=== PATIENT | male | born 1960 | race Two or more races ===

== ENCOUNTER 2023-05-07 14:15 | Emergency (ER) | payer OTHER, MEDICAID ==
[~2023-05-07] VITALS: Ht 170.2 cm; Wt 98.0 kg
[2023-05-07 14:35] LABS: Basophils # (auto) 0.1 10 ^3/uL (0-0.2); Basophils % (auto) 0.9 % (0.0-2.0); Eosinophils # (auto) 0.1 10 ^3/uL (0-0.8); Eosinophils % (auto) 1.4 % (0.0-7.0); Hemoglobin 15.3 g/dL (13.5-17.5); Lymphocytes % (auto) 28.6 % (10.0-50.0); Mean Corpuscular Hemoglobin 31.8 pg (28.0-32.0); Mean Corpuscular Hgb Conc. 34.7 g/dL (32.0-36.0); Mean Corpuscular Volume 91.6 fL (80.0-100.0); Monocytes # (auto) 0.6 10 ^3/uL (0-1.3); Monocytes % (auto) 8.2 % (0.0-12.0); Neutrophils # (auto) 4.2 10 ^3/uL (1.6-8.6); Neutrophils % (auto) 60.9 % (37.0-80.0); Nucleated Red Blood Cells % 0.1 %; Red Blood Cells 4.81 10^6/uL (4.5-5.90); Red Cell Distribution Width 12.9 % (11.8-14.3); White Blood Cell 6.9 10^3/uL (4.4-10.8)
[2023-05-07 14:59] LABS: INR 1.04 (0.9-1.15); Partial Thromboplastin Time 28.4 SEC (24.5-34.5); Prothrombin Time 10.9 sec (9.3-11.8)
[2023-05-07 15:08] LABS: Alanine Aminotransferase 18 U/L (7-40); Albumin 4.6 g/dL (3.2-4.8); Alkaline Phosphatase 102 U/L (46-116); Anion Gap 5 (5-15); Aspartate Aminotransferase 16 U/L (13-40); BUN/Creatinine Ratio 9.7 (10.0-20.0); Bilirubin, Total 0.9 mg/dL (0.2-1.0); Blood Urea Nitrogen 11 mg/dL (9-23); Calcium 9.4 mg/dL (8.5-10.1); Carbon Dioxide 30 mmol/L (20-30); Chloride 104 mmol/L (98-107); Glucose 188 mg/dL (74-106); Potassium 3.7 mmol/L (3.5-5.1); Sodium 139 mmol/L (136-145); Total Protein 6.6 g/dL (5.7-8.2)
[2023-05-07 16:35] VITALS: BP 128/79; PULSE 83; RESP 17; TEMP 97.7; O2SAT 96
[2023-05-08] MEDS ORDERED: MORP15TA PO (14:24)
[2023-05-08] MEDS ORDERED: AMIT25TA20 PO (14:24)
[2023-05-08] MEDS ORDERED: NITR0.4S29 SL (14:24)
[2023-05-08] MEDS ORDERED: ISOS60TA24 PO (14:24)
[2023-05-08] MEDS ORDERED: CLOP75TA28 PO (14:24)
[2023-05-08] MEDS ORDERED: TRAM50TA2 PO (14:24)
[2023-05-08] MEDS ORDERED: TRIA75TA55 PO (14:24)
[2023-05-08] MEDS ORDERED: TIZA4CAP PO (14:24)
[2023-05-08] MEDS ORDERED: ASPI-543 PO (14:24)
[2023-05-08] MEDS ORDERED: ATOR40TA52 PO (14:24)
[2023-05-08] MEDS ORDERED: METF-370 PO (14:29)
== END 2023-05-07 16:38 | disposition home or self-care (01) ==
LOC: ER 14:15
DX: R07.89 Other chest pain (principal); R19.7 Diarrhea, unspecified; R05.9 Cough, unspecified; E11.9 Type 2 diabetes mellitus without complications; I25.10 Atherosclerotic heart disease of native coronary artery without angina pectoris; E78.5 Hyperlipidemia, unspecified; Z98.890 Other specified postprocedural states
CPT/HCPCS: 36415; 71045; 80053; 84484; 85025; 85610; 85730; 93005

== ENCOUNTER 2023-05-08 06:39 | Day surgery (SDC) | payer OTHER, MEDICAID ==
[2023-05-08] VITALS (7 sets, daily range): BP systolic 108–127; BP diastolic 64–79; PULSE 69–78; RESP 14–19; TEMP 98.2; O2SAT 95–98
[2023-05-08] MEDS ORDERED: LIDOCAINE 2%HCL (LOCAL ANESTH.) INJ 20ML MDV ONE (12:36)
[2023-05-08] MEDS ORDERED: IODIXANOL 320MG/ML 100ML BTL IV ONE (12:37)
[2023-05-08] MEDS ORDERED: HEPARIN SODIUM (PORCINE) 5000 UNITS/ML 1ML VIAL ONE (12:38)
[2023-05-08] MEDS ORDERED: ANGIOMAX 250 MG VIAL IV ONE (12:38)
[2023-05-08] MEDS ORDERED: VERAPAMIL 2.5MG/ML INJ 2ML VIAL IV ONE (12:38)
[2023-05-08] MEDS ORDERED: MIDAZOLAM HCL 2MG/2ML 2ml VIAL (1mg/ml) ONE (12:38)
[2023-05-08] MEDS ORDERED: SODIUM CHL 0.9% 0 ML ONE (12:38)
[2023-05-08] MEDS ORDERED: fentaNYL CITRATE 100 MCG/2 ML VL ONE (12:38)
[2023-05-08] MEDS ORDERED: HYDROcodone-ACET 5/325MG TAB PO PRN (14:00)
[2023-05-08] MEDS ORDERED: TIZA4CAP PO (14:24)
[2023-05-08] MEDS ORDERED: ATOR40TA52 PO (14:24)
[2023-05-08] MEDS ORDERED: NITR0.4S29 SL (14:24)
[2023-05-08] MEDS ORDERED: AMIT25TA20 PO (14:24)
[2023-05-08] MEDS ORDERED: TRIA75TA55 PO (14:24)
[2023-05-08] MEDS ORDERED: ASPI-543 PO (14:24)
[2023-05-08] MEDS ORDERED: CLOP75TA28 PO (14:24)
[2023-05-08] MEDS ORDERED: ISOS60TA24 PO (14:24)
[2023-05-08] MEDS ORDERED: TRAM50TA2 PO (14:24)
[2023-05-08] MEDS ORDERED: MORP15TA PO (14:24)
[2023-05-08] MEDS ORDERED: METF-370 PO (14:29)
== END 2023-05-08 15:04 | disposition home or self-care (01) ==
LOC: CATH 06:39
PROVIDERS: ATTEND Internal Medicine
DX: R94.39 Abnormal result of other cardiovascular function study (principal); E78.00 Pure hypercholesterolemia, unspecified; I20.9 Angina pectoris, unspecified; E11.9 Type 2 diabetes mellitus without complications; Z79.84 Long term (current) use of oral hypoglycemic drugs; Z86.73 Personal history of transient ischemic attack (TIA), and cerebral infarction without residual deficits; Z79.01 Long term (current) use of anticoagulants; Z79.82 Long term (current) use of aspirin; I08.1 Rheumatic disorders of both mitral and tricuspid valves; Z90.49 Acquired absence of other specified parts of digestive tract; Z79.899 Other long term (current) drug therapy
CPT/HCPCS: 93005; 93458; C1725; C1769; C1894; J1644; J2250; J3010; Q9967; 99152